=== PATIENT | female | born 1995 | race Caucasian/White ===

== ENCOUNTER → 2016-10-04 | Outpatient (CLI) | payer BC, OTHER | LOC: LFPA 16:31 | PROC: B51MYZZ Fluoroscopy of Right Upper Extremity Veins using Other Contrast (ICD-10-PCS; principal; 2016-10-04) | DX: T82.898A Other specified complication of vascular prosthetic devices, implants and grafts, initial encounter (principal); N39.0 Urinary tract infection, site not specified ==

== ENCOUNTER → 2016-11-17 | Outpatient (CLI) | payer BC | END | disposition disaster alternative care site (69) | LOC: GRAD 15:19 | PROC: BT1BYZZ Fluoroscopy of Bladder and Urethra using Other Contrast (ICD-10-PCS; principal; 2016-11-17) | DX: N39.0 Urinary tract infection, site not specified (principal); N32.89 Other specified disorders of bladder ==